=== PATIENT | male | born 1945 | race African-American/Black ===

== ENCOUNTER 2020-07-26 22:15 | Observation (INO) | payer OTHER, MEDICARE ==
[~2020-07-26] VITALS: Ht 182.9 cm; Wt 89.8 kg
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
[2020-07-26 23:04] LABS: BASO % 0 % (0-3); EOS # 0.1 x10^3/uL (0.0-0.7); EOS % 3 % (0-3); HEMATOCRIT 38.6 % (39.0-53.0); HEMOGLOBIN 12.7 g/dL (13.0-17.5); LYMPH # 1.7 x10^3/uL (1.0-4.8); LYMPH % 30 % (24-48); MEAN CORPUSCULAR HEMOGLOBIN 28 pg (25-35); MEAN CORPUSCULAR HGB CONC 33 g/dL (31-37); MEAN CORPUSCULAR VOLUME 84 fL (79-100); MONO # 0.5 x10^3/uL (0.0-1.1); MONO % 10 % (0-9); NEUT # 3.3 x10^3/uL (1.8-7.7); NEUT % 58 % (31-73); PLATELET COUNT 209 x10^3/uL (140-400); RED BLOOD COUNT 4.62 x10^6/uL (4.30-5.70); RED CELL DISTRIBUTION WIDTH 14.3 % (11.5-14.5); WHITE BLOOD COUNT 5.7 x10^3/uL (4.0-11.0)
--- NOTE | 2020-07-26 23:23 | RAD ---
EXAM: LEFT KNEE, 3 VIEWS. HISTORY: Pain, fall. COMPARISON: None. FINDINGS: No fractures are identified. A tricompartmental arthroplasty is in expected alignment. Mild atheroscl erotic calcifications are noted. There is no joint effusion. Soft tissue swelling is suspected medial ly. IMPRESSION: 1. Medial soft tissue swelling. No fracture. Electronically signed by: Marly Alba MD (07/26/2020 11:21 PM) [facility]
[2020-07-26 23:29] LABS: CREATININE 1.4 mg/dL (0.7-1.3); GFR 59.9; POTASSIUM 3.7 mmol/L (3.5-5.1)
[2020-07-26 23:33] LABS: ALBUMIN 4.1 g/dL (3.4-5.0); ALBUMIN/GLOBULIN RATIO 1.5 (1.0-1.7); MAGNESIUM 2.2 mg/dL (1.8-2.4); TOTAL BILIRUBIN 0.5 mg/dL (0.2-1.0); TOTAL PROTEIN 6.9 g/dL (6.4-8.2)
[2020-07-27] VITALS (7 sets, daily range): BP systolic 115–141; BP diastolic 58–67
--- NOTE | 2020-07-27 00:06 | RAD ---
PQRS Compliance Statement: One or more of the following individualized dose reduction techniques were utilized for this examinat ion: 1. Automated exposure control 2. Adjustment of the mA and/or kV according to patient size 3. Use of iterative reconstruction technique CT HEAD AND CERVICAL SPINE WITHOUT CONTRAST History: Reason: syncope Comparison: None. Procedure: Axial images are obtained of the head from the skull base through the vertex without IV co ntrast. Noncontrast helical CT of the cervical spine was performed. Axial, sagittal, and coronal rec onstructions were obtained. Findings: The ventricles and sulci are normal for the patient's age. There is mild periventricular white matter hypoattenuation. This is a nonspecific finding but is commonly due to chronic small vessel ischemic disease in a patient of this age. No mass-effect, midline shift, hemorrhage or obvious acute infarction is identified. Basilar cistern s are patent. Bone windows demonstrate no significant calvarial abnormality. The visualized paranasal sinuses are clear. Mastoid air cells are well aerated. There is no evidence of acute fracture or acute malalignment of the cervical spine. There are no perched or jumped facet joints. Facet joints are mildly hypertrophic. There is mild grad e 1 anterolisthesis of C2 on C3. The alignment is otherwise maintained. There is straightening of nor mal cervical lordosis. There is disc space narrowing and degenerative endplate spurring throughout th e cervical spine, most advanced at C6/C7. There is multilevel uncinate process hypertrophy. There is multilevel neural foraminal narrowing. Visualized soft tissues of the neck demonstrate no significant abnormalities. The visualized lung api matt are clear. IMPRESSION: 1. No acute intracranial abnormality. 2. No acute fracture of the cervical spine. Electronically signed by: Juan Posey MD (07/27/2020 12:03 AM) [facility]
[2020-07-27 00:25] LABS: BILIRUBIN,URINE NEGATIVE (NEG); CLARITY,URINE CLEAR; COLOR,URINE YELLOW; NITRITE,URINE NEGATIVE (NEG); PH,URINE 5.5 (<5.0-8.0); PROTEIN,URINE NEGATIVE (NEG-TRACE); UROBILINOGEN,URINE 0.2 mg/dL (0.2 mg/dL)
[2020-07-27 00:36] LABS: BACTERIA,URINE 0 /HPF (0-FEW); RBC,URINE 0 /HPF (0-2); WBC,URINE RARE /HPF (0-4)
[2020-07-27] MEDS ORDERED: ACETAMINOPHEN 325 MG TABLET. PO PRN (01:00)
[2020-07-27] MEDS ORDERED: ONDANSETRON PF 4 MG/2 ML VIAL. IV PRN (01:00)
[2020-07-27] MEDS ORDERED: MORPHINE SULFATE 2 MG/ML VIAL. IV PRN (01:00)
[2020-07-27] MEDS: IV NORMAL SALINE 1000ML BAG 1,000 ML IV SCH ×2 (01:00→14:20)
[2020-07-27] MEDS ORDERED: ATOR20TA58 PO (06:46)
[2020-07-27] MEDS ORDERED: METO25TA4 PO (06:46)
[2020-07-27] MEDS ORDERED: TAMS0.4C97 PO (06:53)
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
[2020-07-27 10:19] LABS: CALCIUM 8.5 mg/dL (8.5-10.1); CREATININE 1.4 mg/dL (0.7-1.3); GFR 59.9; POTASSIUM 3.7 mmol/L (3.5-5.1)
--- NOTE | 2020-07-27 11:02 | EKG ---
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
--- NOTE | 2020-07-27 11:53 | NUR ---
SS following for discharge planning. SS reviewed pt chart and discussed with pt RN. Pt is from home with spouse and is currently on room air. Cardiology consulted. ECHO ordered. SS will continue to follow for discharge planning.
--- NOTE | 2020-07-27 19:10 | NUR ---
Discharge Note: FERNANDO HOLT [facility] Discharge instructions and discharge home medications reviewed with Patient and a copy given. All questions have been answered and understanding verbalized. Zio heart monitor applied prior to patient discharging. All belongings taken with patient. The following instructions and handouts were given: Syncope, Bradycardia Discontinued lines and drains: Peripheral IV intact. Patient discharged to Home or Self Care with Spouse via Wheelchair
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
[2020-07-28] MEDS ORDERED: ATORVASTATIN CALCIUM 20 MG TABLET PO SCH (09:00)
[2020-07-28] MEDS ORDERED: TAMSULOSIN 0.4 MG CAP.ER.24H. PO SCH (09:00)
--- NOTE | 2020-07-30 09:10 | CARD ---
MR#: [id number] Date of Study: 07/27/2020 Ordering Physician: AGNES OTERO, Referring Physician: AGNES OTERO, Tech: Freda Saeed, [facility] APPROVED REPORT EXAM: Two-dimensional and M-mode echocardiogram with Doppler and color Doppler. Other Information Quality : AverageHR: 104bpm INDICATION Syncope 2D DIMENSIONS RVDd3.1 (2.9-3.5cm)Left Atrium(2D)2.9 (1.6-4.0cm) IVSd1.0 (0.7-1.1cm)Aortic Root(2D)3.1 (2.0-3.7cm) LVDd4.4 (3.9-5.9cm)LVOT Diameter2.1 (1.8-2.4cm) PWd1.0 (0.7-1.1cm)LVDs2.7 (2.5-4.0cm) FS (%) 37.1 %SV57.9 ml LVEF(%)67.3 (>50%) Aortic Valve AoV Peak Victor Manuel.146.7cm/sAoV VTI26.3cm AO Peak GR.8.6mmHgLVOT Peak Victor Manuel.115.4cm/s LVOT VTI 22.68cmAO Mean GR.4mmHg GEGE (VMAX)2.16sk6JXG (VTI)3.06cm2 AI P 1/2 Fyph512yy Mitral Valve MV E Jkwbibzj90.0cm/sMV DECEL JKPL757gv MV A Jbsltnir78.0cm/sMV MTO68mn E/A Ratio0.8MVA (PHT)3.73cm2 TDI E/Lateral E'8.4E/Medial E'7.4 Pulmonary Valve PV Peak Hlgnocya10.2cm/sPV Peak Grad.3mmHg Tricuspid Valve TR P. Bwreuqqq526ww/sRAP KCGFJZIN3jpWw TR Peak Gr.55swWzXXJK88viQu Pulmonary Vein S1 Xxamlhls17.2cm/sD2 Hkucbfbm74.0cm/s PVa qsziecik483ummr LEFT VENTRICLE The left ventricle is normal size. There is normal left ventricular wall thickness. The left ventricu lar systolic function is normal and the ejection fraction is within normal range. The Ejection Fracti on is 55%. There is normal LV segmental wall motion. Transmitral Doppler flow pattern is Grade I-abno rmal relaxation pattern. RIGHT VENTRICLE The right ventricle is normal size. There is normal right ventricular wall thickness. The right ventr icular systolic function is normal. ATRIA The left atrium size is normal. The right atrium size is normal. The interatrial septum is intact wit h no evidence for an atrial septal defect or patent foramen ovale as noted on 2-D or Doppler imaging. AORTIC VALVE The aortic valve is normal in structure and function. Doppler and Color Flow revealed mild aortic reg urgitation. There is no significant aortic valvular stenosis. Calculated aortic valve area is 2.75 cm 2 with maximum pressure gradient of 9 mmHg and mean pressure gradient of 5 mmHg. MITRAL VALVE The mitral valve is normal in structure and function. There is no evidence of mitral valve prolapse. There is no mitral valve stenosis. Doppler and Color-flow revealed trace mitral regurgitation. TRICUSPID VALVE The tricuspid valve is normal in structure and function. Doppler and Color Flow revealed trace tricus pid regurgitation with an estimated PAP of 32 mmHg. There is no tricuspid valve stenosis. PULMONIC VALVE The pulmonic valve is not well visualized. Doppler and Color Flow revealed trace pulmonic valvular re gurgitation. There is no pulmonic valvular stenosis. GREAT VESSELS The aortic root is normal in size. The IVC was not visualized. PERICARDIAL EFFUSION There is no evidence of significant pericardial effusion. Critical Notification Critical Value: No <Conclusion> The left ventricular systolic function is normal and the ejection fraction is within normal range. Th e Ejection Fraction is 55%. There is normal LV segmental wall motion. Doppler and Color Flow revealed mild aortic regurgitation. Signed by : Alphonso Olivares, Electronically Approved : 07/30/2020 09:10:25
== END 2020-07-27 19:10 | disposition home or self-care (01) ==
LOC: ER 22:15 → 2 SOUTH 07-27 00:46
PROVIDERS: ADMIT Family Medicine; ATTEND Family Medicine
DX: S00.81XA Abrasion of other part of head, initial encounter (principal); S60.511A Abrasion of right hand, initial encounter; R55 Syncope and collapse; R00.1 Bradycardia, unspecified; I10 Essential (primary) hypertension; E78.5 Hyperlipidemia, unspecified; G47.33 Obstructive sleep apnea (adult) (pediatric); N17.0 Acute kidney failure with tubular necrosis; N40.0 Benign prostatic hyperplasia without lower urinary tract symptoms; E86.0 Dehydration; H26.9 Unspecified cataract; E78.00 Pure hypercholesterolemia, unspecified; Z96.653 Presence of artificial knee joint, bilateral; W18.30XA Fall on same level, unspecified, initial encounter; Y92.89 Other specified places as the place of occurrence of the external cause; Y93.89 Activity, other specified; Y99.8 Other external cause status
CPT/HCPCS: 36415; 70450; 72125; 73562; 80048; 80053; 81001; 83605; 83735; 83880; 84443; 84484; 85025; 93005; 93306; 96360; 96361; 99285; G0378; J7030; G0379

== ENCOUNTER 2020-11-25 19:57 | Emergency (ER) | payer OTHER, MEDICARE ==
[2020-07-27 14:34] VITALS: BP 120/61
[~2020-11-25 19:57] MED LIST: ATOR20TA58 PO; METO25TA4 PO; TAMS0.4C97 PO
== END 2020-11-25 21:05 | disposition left against medical advice (07) ==
LOC: ER 19:57
DX: M25.572 Pain in left ankle and joints of left foot (principal); Z53.21 Procedure and treatment not carried out due to patient leaving prior to being seen by health care provider